=== PATIENT | male | born 1960 | race Hispanic/Latino ===

== ENCOUNTER 2016-12-20 10:40 | Day surgery (SDC) | payer BC ==
[2016-12-19 11:21] VITALS: BMI 32.5
[2016-12-20] MEDS ORDERED: Lactated Ringer's 1,000 ML IV ONE ×2 (11:18→15:00)
[2016-12-20] MEDS ORDERED: Bupivacaine 0.5% Inj(30mL) ONE (11:24)
[2016-12-20] MEDS ORDERED: Lidocaine 1% Inj (20ml) ONE (11:24)
[2016-12-20] MEDS ORDERED: Lidocaine 2% w Epi 1:100,000 Inj IJ ONE (11:24)
[2016-12-20] MEDS ORDERED: Propofol 10 mg/ml Inj (20 ML) ONE (11:47)
[2016-12-20] MEDS ORDERED: Sevoflurane - Inhalation Anesthetic Liq (250 ml) ONE (12:41)
[2016-12-20] MEDS ORDERED: Dexamethasone 4 mg/1 ml ONE (12:57)
[2016-12-20] MEDS ORDERED: MethylPREDNISolone Depo 40 mg/ml Inj ONE (12:58)
--- NOTE | 2016-12-20 13:50 | PCM.SURG1 ---
Surgeon's Initial Post Op Note - Surgeon's Notes Surgeon: Dr. Soren Clifton L[employer] Fabricating Machine Tender: none Pre-Operative Diagnosis: right knee meniscal tear Operative Findings: see dictation Post-Operative Diagnosis: same Operation Performed: Right knee partial medial and lateral menisectomy, chondroplasty, synovectomy Specimen/Specimens Removed: none Estimated Blood Loss: EBL {In ML}: 10 Post-Op Condition: Good Date of Surgery/Procedure: 12/20/16 Time of Surgery/Procedure: 11:00
[2016-12-20] MEDS: HYDROmorphone 0.5 mg/0.5 ml ISec IVP PRN ×2 (14:03→14:24)
[2016-12-20] MEDS ORDERED: Oxycodone/Acetaminophen 5/325 mg Tab PO PRN (14:24)
--- NOTE | 2016-12-20 20:32 | OP ---
PROCEDURE DATE: 12/20/2016 DATE OF OPERATION: 12/20/2016. ATTENDING PHYSICIAN: Soren Clifton MD ASSISTANTS: None. PREOPERATIVE DIAGNOSES: 1. Right knee medial meniscal tear. 2. Synovitis. POST- OPERATIVE DIAGNOSES: 1. Right knee tricompartmental synovitis. 2. Medial meniscal tear of posterior horn and the body. 3. Lateral meniscal tear of the body. 4. Grade IV osteochondral defect of the lateral tibial plateau. 5. Grade II osteochondral defect of the medial femoral condyle. ANESTHESIA: General. PROCEDURE: 1. Right knee arthroscopic partial medial and lateral meniscectomy, 91814. 2. Abrasion arthroplasty, 55851. 3. Major synovectomy, 95836. 4. Chondroplasty of medial femoral condyle, 70938. 5. Injection of large joint, . EBL: 5 mL. SPECIMENS: None. DRAINS: None. CLOSURE: Primary FLUIDS: See anesthesia sheet COMPLICATIONS: None. INDICATIONS: After failing a course of non-operative therapy, the patient elected to undergo the abo ve procedure. In the office, the risks and possible complications of knee arthroscopy were discussed in detail with the patient. These risks include but are not limited to continued pain, lack of motio n, infection, vascular injury, DVT / PE, nerve injury including peroneal nerve dysfunction, reflex sy mpathetic dystrophy, compartment syndrome, unforeseen medical and/or anesthesia complications, limb l oss, and even . The patient expressed an understanding of the risks and possible benefits of th e procedure, and is also aware of the alternatives to surgery. An informed consent was obtained, and was checked immediately pre-op. PROCEDURE: The patient was correctly identified in the holding area and the right knee was marked wi th the surgeons initials. The patient was transported to the operating room and placed in the supine position, general anesthesia was obtained, a pre-operative orthopaedic exam revealed a fusion 1+, ra nge of motion is from 3-120, stable to varus and valgus stress. The lower extremity was prepped and draped in the standard fashion, and the thigh was placed in an ar throscopic leg son. A well-padded tourniquet was applied to the patient's thigh. Time out was co mpleted confirming the correct operative site. Esmarch was used to exsanguinate the leg and tournique t was inflated to 300 mmhg. A standard anterolateral viewing portals were made with a #11 blade after sub-dermal 1% Lidocaine with Epinephrine injection. The knee was distended with normal saline and epinephrine in a 1:1,000,000 mixture, at an initial pre ssure of 35mmHg. The arthroscope was inserted from the anterolateral portal and moved into the media l compartment. Next, the anteromedial working portal was made with spinal needle localization. The arthroscopic probe was inserted, and all compartments of the knee were sequentially visualized. FINDINGS: Arthroscopic examination of the knee revealed: 1. Tear of the posterior horn and body of medial meniscus. 2. Tear of the body of lateral meniscus. 3. Tricompartmental synovitis. 4. Grade IV chondral defect of the medial tibial plateau. 5. Grade II chondral defect of the medial femoral condyle. Partial medial meniscectomy was performed with a combination of hand instruments and a 4.0 mm motoriz ed shaver. The meniscus was debrided to a smooth, stable border with an excursion of less than 3 mm. Partial lateral meniscectomy was performed with a combination of hand instruments and a 4.0 mm motori zed shaver. The meniscus was debrided to a smooth, stable border with an excursion of less than 5 mm. The motorized shaver was used to mechanically debride the loose, fibrillated and fragmented chondral edges of the medial femoral condyle to a stable border. Extreme care was taken to not disrupt the ad jacent chondral surface. The edges of injured chondral area were probed to ensure stability after the shaver was withdrawn from the knee. The motorized shaver was used to perform a synovectomy of the mediolateral and patellofemoral compart ments. The hypertrophic synovium was resected with minimal bleeding. No synovial incarceration was n oted after synovectomy when the knee was put through a full passive range of motion. The full thickness chondral defect of the medial tibial plateau was then addressed using the fitter mechanic al shaver. The shaver and a ring curette was used to denude the calcified cartilage layer and expose bleeding subchondral bone in an effort to promote fibrocartilage formation over the eburnated area. Care was taken to preserve any surrounding intact chondral surface, and the perimeter of the area wa s inspected for loose flaps which were smoothed. Finally, 1 mL of 40 mg Depomedrol mixed with 9 mL of 0.25% Marcaine was injected within the knee join t. Post operatively, the patient will be weight bearing as tolerated and will utilize my standard post a rthroscopy rehab protocol. The patient will be started on straight leg raising and quadriceps settin g exercises in the recovery room and will progress to prone hangs as well as prone knee flexion exerc ises using an active assisted construct. During this procedure, I was assisted by Soren Clifton MD, who assisted in positioning the patient on the operating room table as well as transferring the patient from the operating room table to the re covery room stretcher. In addition, Soren Clifton MD, assisted me during the actual operative proced ure by positioning the patient's extremity to allow for easier arthroscopic access to all areas of th e joint. The presence of Soren Clifton MD, as my operative information services assistant was medically necessary to ensu re the utmost safety of the patient in the pre, intra-, and post-operative periods. Soren Clifton MD cc: [id number] TT: 12/20/2016 20:31:44 dn
[2016-12-21 16:02] VITALS: RESP 18
[2016-12-21 16:04] VITALS: BP 124/70; PULSE 63; TEMP 98.2; O2SAT 98
== END 2016-12-20 16:46 | disposition home or self-care (01) ==
LOC: H.OPSURG 10:40
PROVIDERS: ATTEND Orthopaedic Surgery
DX: S83.241A Other tear of medial meniscus, current injury, right knee, initial encounter (principal); S83.281A Other tear of lateral meniscus, current injury, right knee, initial encounter; M65.861 Other synovitis and tenosynovitis, right lower leg; X58.XXXA Exposure to other specified factors, initial encounter; Y92.9 Unspecified place or not applicable
CPT/HCPCS: 29876; 29879; 29880; 88304; 88305; 97161; G8978; G8979; G8980; J0171; J0690; J1030; J1100; J1170; J2001; J2405; J2704; J2765; J7030; J7120